=== PATIENT | female | born 1935 ===

== ENCOUNTER → 2023-07-05 13:39 | Outpatient (REF) | payer OTHER, SELFPAY | LOC: RCS 13:39 | PROVIDERS: ATTENDING PHYSICIAN Internal Medicine Cardiovascular Disease; FAMILY PHYSICIAN Internal Medicine | DX: R00.2 Palpitations (principal) | CPT/HCPCS: 93225; 93226 ==

== ENCOUNTER → 2024-09-08 15:58 | Outpatient (REF) | payer OTHER, SELFPAY | LOC: HWRAD 15:58 | PROVIDERS: ATTENDING PHYSICIAN Internal Medicine Critical Care Medicine; FAMILY PHYSICIAN Internal Medicine; REFERRING PHYSICIAN Internal Medicine Cardiovascular Disease | DX: J84.10 Pulmonary fibrosis, unspecified (principal); J45.991 Cough variant asthma | CPT/HCPCS: 71046 ==